=== PATIENT | male | born 1985 | race Caucasian/White ===

== ENCOUNTER 2020-01-08 09:47 | Emergency (ER) | payer BC, SELFPAY ==
[2020-01-08] VITALS (10 sets, daily range): BP systolic 103–159; BP diastolic 50–84; PULSE 80–91; RESP 12–19; TEMP 36.3; O2SAT 93–100; BMI 32.3
--- NOTE | 2020-01-08 10:30 | EKG12_ITS ---
Test Reason : CP Blood Pressure : / mmHG Vent. Rate : 087 BPM Atrial Rate : 087 BPM P-R Int : 170 ms QRS Dur : 084 ms QT Int : 350 ms P-R-T Axes : 024 048 009 degrees QTc Int : 421 ms Sinus rhythm with Premature supraventricular complexes Nonspecific ST abnormality Abnormal ECG Confirmed by STANLEY HOLMAN ([id number]), social media editor EUN AL ([id number]) on 01/09/2020 2:30:40 PM Referred By: SAPNA/SIMRAN Confirmed By:STANLEY HOLMAN
--- NOTE | 2020-01-08 10:35 | RAD_ITS ---
STUDY: X-RAY CHEST REASON FOR EXAM: Male, 34 years old. SOB, C/O PAIN IN THE BACK OF HIS NECK AROUND 0845, TO HIS JAW AROUND 0900 AND INTO HIS CHEST BY 0910. STATES IS WORSE WITH DEEP BREATH TECHNIQUE: Single AP portable view of the chest. COMPARISON: None. FINDINGS: EKG electrodes are seen. The lungs are clear and expanded. There is no demonstrated pleural abnormality. Normal size heart. Normal mediastinum and stalin. Normal visualized pulmonary arteries. Soft tissue density in the right suprahilar region. Questionable mediastinal mass. Correlation with the CT scans recommended. Normal visualized thoracic spine. Normal visualized ribs, clavicles, and shoulders. There is no demonstrated abnormality of the visualized soft tissue structures of the upper abdomen. RAD/Chest 1 View (Portable) IMPRESSION: Widening of the right suprahilar region. Correlation with CT scan is recommended. Electronically Signed: Mervin Prince, at 10:57 EST , Service support ,
--- NOTE | 2020-01-08 10:36 | ED.RN ---
NO OLD EKG
[2020-01-08] MEDS: Nitroglycerin SL (ED/IMG/CATH) 0.4 MG TABLET SUBLINGUAL (10:49)
[2020-01-08] MEDS: Aspirin 81 MG TAB.CHEW 324 MG PO (10:49)
[2020-01-08 10:53] LABS: Absolute Lymphocyte Count 3.93 X10^3/uL (0.83-4.51); Absolute Neutrophil Count 4.2 X10^3/uL (2.0-7.7); Basophil# 0.06 X10^3/uL; Basophil% 0.6 % (0-1); Eosinophils% 4.2 % (0-5); Hematocrit 46.1 % (40-54); Hemoglobin 16.2 g/dL (13.0-16.5); Lymphocyte # 3.93 X10^3/ul (4.0); Lymphocyte % 41.1 % (19-41); Mean Corp Hgb Conc 35.1 g/dL (32-36); Mean Corpuscular Hgb 29.8 pg (27.0-32.0); Mean Corpuscular Volume 84.7 fL (80-94); Mean Platelet Vol. 10.2 fl (6.2-12.0); Monocyte# 0.89 X10^3/uL; Monocyte% 9.3 % (0-10); NRBC Flagged by Analyzer 0 % (0-5); Neutrophil # 4.23 X10^3/uL (2.7-7.7); Neutrophil % 44.2 % (47-70); Platelet Count 254 K/mm3 (150-450); RBC Distribution Width CV 12.1 % (11.6-14.6); RBC Distribution Width SD 36.3 fl (35.1-43.9); Red Blood Count 5.44 M/mm3 (4.6-6.2); White Blood Count 9.6 K/mm3 (4.4-11.0)
[2020-01-08] MEDS: Acetaminophen 500 MG Tablet 1000 MG PO (11:00)
[2020-01-08 11:01] LABS: D-Dimer Quantitative (DVT/PE) 0.39 FEU/ug/m (0.27-0.49)
[2020-01-08 11:12] LABS: Anion Gap 8 (5-15); BUN 14 mg/dL (7-18); BUN/Creat Ratio 11.7 RATIO (10-20); Calcium,Total 9.7 mg/dL (8.5-10.1); Chloride 106 mmol/L (98-107); EST Glomerular Filtration Rate 74 mL/min (>60); Est Glom Filt Rate - Afr Amer 89 mL/min (>60); Glucose 101 mg/dL (74-106); Potassium 3.9 mmol/L (3.5-5.1); Sodium Level 140 mmol/L (136-145)
[2020-01-08] MEDS: Ondansetron 4 MG/2 ML Vial IV (11:55)
--- NOTE | 2020-01-08 12:26 | CT_ITS ---
STUDY: CTA CHEST REASON FOR EXAM: Male, 34 years old. CHEST , JAW AND NECK PAIN RADIATION DOSAGE (If Supplied By Facility): CTDIvol = ( 12.47 ) mGy, DLP = ( 493.31 ) mGycm TECHNIQUE: The examination was performed with the intravenous administration of 100 ML ISOVUE 370. Post-processing of the angiographic images was performed, with multiplanar reformation and 3D reconstruction. Individualized dose optimization techniques were used for this CT. COMPARISON: None. FINDINGS: Normal enhancement of the main pulmonary artery and right and left pulmonary arteries. Normal enhancement of the bilateral peripheral pulmonary arteries. There is no demonstrated pulmonary embolism. There is aneurysmal dilatation of the ascending aorta. The transverse diameter of the ascending aorta measures 73.6 mm''s. There is evidence of a dissection arising from the root of aorta to the level of the aortic arch. This is a type A dissection. Normal heart and pericardium. Normal mediastinum. Normal hilar regions. Normal visualized trachea and bronchi. The lungs are well expanded. Mild degree of increased markings at the lung bases suggestive of atelectasis. Normal pleura. Normal chest wall structures. Normal osseous structures. Fatty infiltration of the liver. CT/CTA Chest W/WO Contrast IMPRESSION: Dilated aorta with a transverse dimension of 73.6 mm with evidence of a type A dissection of the aortic arch. The referring physician was notified. N.B. : The above information has been verbally conveyed by Mervin Prince to Kimo Shukla on 01/08/2020 13:06:05 (ET). Electronically Signed: Mervin Prince, at 13:07 EST , Service support ,
--- NOTE | 2020-01-08 13:34 | ED.VISSUMM ---
- ER Visit Summary Date of Service: 01/08/20 Chief Complaint: Chest pain History of Present Illness: The patient is a 34 M who presents with neck and chest pain that began today. Patient states the pain began when he got to work this morning. Patient describes the pain is sharp and heavy. Patient states the pain started in his neck and radiate around to his jaw and down into his chest. Patient states the pain is over the left parasternal area. Patient states the pain improves with leaning to his left. Patient admits to some shortness of breath. Patient denies any nausea or vomiting. Patient denies any diaphoresis. Physical Examination: Vital signs are stable. Patient is afebrile. Patient is in no acute distress. Oral mucosa is pink and moist. Neck is supple. Trachea is midline. There is no JVD noted. Heart was regular rate and rhythm. Lungs are clear and equal bilaterally. Abdomen is soft. Bowel sounds are normal. There is no tenderness. There is no rebound or guarding noted. Skin is warm dry. Cranial nerves II through XII are intact. There are no focal motor or sensory deficits noted. Extremities are intact. There is no calf tenderness or edema. Test Results: EKG shows normal sinus rhythm with a rate of 87. There are nonspecific ST-T wave changes. There are no acute findings. There are no prior EKGs available for comparison. CBC and basic metabolic profile were within normal limits. Troponin was normal. D-dimer was normal. Portable chest x-ray shows widening of the right suprahilar region. Because of this a CTA of the chest was obtained. There is a type A aortic dissection. This was interpreted by the radiologist and reviewed by myself. Emergency Department Course and Treatment: Patient was given aspirin and 1 sublingual nitroglycerin initially. Patient developed a headache after the nitroglycerin. Patient states the nitroglycerin did not help his pain. Patient was given Tylenol for his headache. Patient developed some nausea and vomiting. Patient was given Zofran for this. Patient was started on a labetalol drip after the CT results were returned. Case was discussed with Dr. Russell from [facility]. Patient will be transferred to the [facility]. CT images were transferred electronically. Patient and family understand and are agreeable with the plan. All questions were answered. Treatment Plan: Critical care time 75 minutes. This included time obtaining history, performing physical exam, reevaluating patient, interpreting results, discussion with consultants, and arranging transfer. There were no procedures performed. Disposition: Transfer to [facility] Impression: Type A aortic dissection This note was generated with [employer] dictation software. It may contain incorrect words, spelling, and punctuation that were not noted in review of the chart prior to signing ED Disposition - Plan for ED Patient: Disposition: [facility] - Main Diagnosis: Type 1 dissection of ascending aorta Referrals: Care Physician,No Primary [Primary Care Provider] -
--- NOTE | 2020-01-08 13:39 | ED.RN ---
REPORT TO JAVAD KRAUSE AT [facility] AND [facility]. PT RESP EVEN AND UNLABORED, PT A&O X 3, NO DISTRESS NOTED. PT OUT OF ED WITH [facility] FOR TRANSPORT TO [facility].
--- NOTE | 2020-01-08 15:18 | CHAPLAIN ---
Type of Pastoral Visit ___ Initial Visit ___ Follow-up Visit ___ On-call Visit ___ General Patient Visit ___ Spiritual Assessment ___ Family Conference ___ Bereavement ___ Rapid Response ___ Code Blue _x__ Other (describe below) Pastoral Care Referral From ___ Patient ___ Family _x__ Nurse ___ Physician ___ Telephone Station Repairer ___ Shipping And Receiving Associate ___ Other (describe below) Sacrament/Intervention _x__ Active listening ___ Anointing ___ Restorationist ___ Bereavement ___ Communion ___ Francy exploration ___ ___ Life review _x__ Prayer ___ Reconciliation ___ Sacrament of Sick _x__ Supportive presence ___ Wedding ___ Other (describe below) Pastoral Comments patient is being transferred within minutes; introduction of support and offer of presence and prayer with family that has gathered in hallway;
== END 2020-01-08 13:41 | disposition short-term general hospital (02) ==
LOC: ED 10:50
PROVIDERS: Emergency Provider Emergency Medicine
DX: I71.01 Dissection of thoracic aorta (principal)
CPT/HCPCS: 71045; 71275; 80048; 84484; 85025; 85379; 93005; 96365; 96375; 99285; J7050; Q9967; A4216; J2405